=== PATIENT | female | born 1940 | race Caucasian/White ===

== ENCOUNTER → 2016-12-25 | Outpatient (CLI) | payer OTHER ==
[~2016-12-25] MED LIST: 'CLONIDINE0.1 MG PO; ADVIL200 M1 PO; AMLODIPINE BESYL5 MG PO; ASPRIN PO; BUMETANIDE1 MG PO; CALTRATE 600 +1 TAB PO; DIOVAN160 M2 PO; K-DUR20 MEQ PO; KLOR-CON 88 ME1 PO; LASIX20 MG PO; LISINOPRIL20 MG PO; LOSARTAN POTAS100 M1 PO; LOW DOSE ASPIRI81 MG PO; MICROZIDE12.5 M1 PO; NEXIUM40 MG PO; NORFLEX100 MG PO; NORVASC5 MG PO; PERCOCET 325 MG1 TA2 PO; SIMVASTATIN20 MG PO; TOPROL XL100 MG PO; VICODIN 5/500 505 MG PO; VITAMIN D5000 I3 PO; VITAMIN D50000 UNIT PO; XANAX0.25 MG PO; ZOCOR20 MG PO; ZOFRAN4 MG PO
== END | disposition home or self-care (01) ==
LOC: US 13:57
DX: R60.0 Localized edema (principal)

== ENCOUNTER → 2017-02-27 | Outpatient (CLI) | payer OTHER | END | disposition home or self-care (01) | LOC: US 10:52 | DX: R22.1 Localized swelling, mass and lump, neck (principal) ==

== ENCOUNTER → 2017-03-14 | Outpatient (CLI) | payer OTHER ==
[2017-03-14 15:11] LABS: CREATININE 0.87 mg/dL (0.55-1.02)
== END | disposition home or self-care (01) ==
LOC: LAB 14:41 → CT 15:00
PROVIDERS: Surgery
DX: R22.1 Localized swelling, mass and lump, neck (principal)

== ENCOUNTER → 2017-03-21 | Outpatient (CLI) | payer OTHER | END | disposition home or self-care (01) | LOC: CT 03-14 15:00 | DX: I67.82 Cerebral ischemia (principal); H44.521 Atrophy of globe, right eye; M26.69 Other specified disorders of temporomandibular joint ==

== ENCOUNTER → 2017-04-02 | Outpatient (CLI) | payer OTHER | END | disposition home or self-care (01) | LOC: US 12:24 | DX: E04.2 Nontoxic multinodular goiter (principal) ==

== ENCOUNTER → 2017-04-25 | Outpatient (CLI) | payer OTHER ==
[2017-04-25 11:28] LABS: ACT PARTIAL THROMBO TIME 24.3 SECONDS (20.8-31.5); INTERNATIONAL NORM RATIO 0.9 (2.0-3.5)
== END | disposition home or self-care (01) ==
LOC: SDC 11:00 → EDSTATUS 11:00
PROVIDERS: Internal Medicine
DX: E04.1 Nontoxic single thyroid nodule (principal); E07.9 Disorder of thyroid, unspecified; Z79.01 Long term (current) use of anticoagulants

== ENCOUNTER 2018-03-02 14:13 | Emergency (ER) | payer OTHER ==
[~2018-03-02] VITALS: Wt 72.6 kg
[2018-03-02 14:13] VITALS: BP 188/78
== END 2018-03-02 16:31 | disposition home or self-care (01) ==
LOC: ED 14:13
DX: M25.571 Pain in right ankle and joints of right foot (principal); M79.661 Pain in right lower leg; M79.671 Pain in right foot; E78.00 Pure hypercholesterolemia, unspecified; I10 Essential (primary) hypertension; K21.9 Gastro-esophageal reflux disease without esophagitis; Z85.3 Personal history of malignant neoplasm of breast; Z79.899 Other long term (current) drug therapy; Z79.82 Long term (current) use of aspirin; Z90.710 Acquired absence of both cervix and uterus; Z90.49 Acquired absence of other specified parts of digestive tract; W01.198A Fall on same level from slipping, tripping and stumbling with subsequent striking against other object, initial encounter; Y93.01 Activity, walking, marching and hiking; Y92.89 Other specified places as the place of occurrence of the external cause; Y99.8 Other external cause status

== ENCOUNTER → 2018-04-09 | Outpatient (CLI) | payer OTHER | END | disposition home or self-care (01) | LOC: US 11:00 | DX: M79.604 Pain in right leg (principal); R60.9 Edema, unspecified ==

== ENCOUNTER → 2019-03-31 | Outpatient (CLI) | payer OTHER ==
[2019-03-31 10:57] LABS: BASO # 0.1 10*3/uL (0.0-0.1); EOS # 0.3 10*3/uL (0.0-0.4); EOS % 4.3 % (1.0-4.0); HEMATOCRIT 34.9 % (37.0-47.0); HEMOGLOBIN 11.3 g/dl (12.0-16.0); LYMPH # 0.5 10*3/uL (1.3-4.4); LYMPH % 7.7 % (27.0-41.0); MEAN CELL VOLUME 102.3 fl (81.0-99.0); MEAN CORPUSCULAR HGB 33.1 pg (27.0-31.0); MEAN CORPUSCULAR HGB CONC 32.4 g/dl (33.0-37.0); MEAN PLATELET VOLUME 13.1 fl (9.6-12.3); MONO # 0.6 10*3/uL (0.1-1.0); MONO % 9.5 % (3.0-9.0); NEUT # 4.8 10*3/uL (2.3-7.9); NEUT % 77.2 % (47.0-73.0); PLATELET COUNT AUTOMATED 164 10*3/uL (130-400); RED BLOOD COUNT 3.41 10*6/uL (4.10-5.10); RED CELL DISTRI WIDTH 12.2 % (0-14.5); WHITE BLOOD COUNT 6.2 10*3/uL (4.8-10.8)
[2019-03-31 11:13] LABS: ALBUMIN 3.4 gm/dl (3.1-4.5); CREATININE 1.23 mg/dL (0.55-1.02); FREE T4 1.32 ng/dl (0.76-1.46); POTASSIUM 4.2 mmol/L (3.5-5.1)
[2019-03-31 11:17] LABS: THYROID STIM HORMONE (HS) 3.06 uIU/ml (0.358-4.75)
[2019-03-31 11:39] LABS: VITAMIN D, 25-HYDROXY 30.2 ng/mL (30-100)
== END | disposition home or self-care (01) ==
LOC: LAB 09:58 → CT 10:00
PROVIDERS: Internal Medicine
DX: Z13.1 Encounter for screening for diabetes mellitus (principal); Z13.220 Encounter for screening for lipoid disorders; I12.9 Hypertensive chronic kidney disease with stage 1 through stage 4 chronic kidney disease, or unspecified chronic kidney disease; N18.3 Chronic kidney disease, stage 3 (moderate); E55.9 Vitamin D deficiency, unspecified

== ENCOUNTER → 2019-05-10 | Day surgery (SDC) | payer OTHER ==
[2019-05-10 11:16] LABS: ACT PARTIAL THROMBO TIME 21.3 SECONDS (20.0-32.1); INTERNATIONAL NORM RATIO 0.9 (2.0-3.5)
== END | disposition home or self-care (01) ==
LOC: SDC 05-07 11:00 → RAD 05-07 11:00 → US 05-07 11:00 → SDC 01:26
PROVIDERS: Surgery
DX: D17.1 Benign lipomatous neoplasm of skin and subcutaneous tissue of trunk (principal); K21.9 Gastro-esophageal reflux disease without esophagitis; I10 Essential (primary) hypertension; F41.9 Anxiety disorder, unspecified; Z79.899 Other long term (current) drug therapy; Z79.82 Long term (current) use of aspirin; Z98.890 Other specified postprocedural states

== ENCOUNTER → 2020-01-31 | Outpatient (CLI) | payer OTHER ==
[2020-01-31 10:28] LABS: BASO # 0.1 10*3/uL (0.0-0.1); BASO % 1.2 % (0.0-1.0); EOS # 0.3 10*3/uL (0.0-0.4); EOS % 3.8 % (1.0-4.0); LYMPH # 0.8 10*3/uL (1.3-4.4); LYMPH % 12.1 % (27.0-41.0); MEAN CELL VOLUME 98.7 fl (81.0-99.0); MEAN CORPUSCULAR HGB CONC 32.4 g/dl (33.0-37.0); MEAN PLATELET VOLUME 12.6 fl (9.6-12.3); MONO # 0.6 10*3/uL (0.1-1.0); MONO % 8.2 % (3.0-9.0); NEUT # 5.1 10*3/uL (2.3-7.9); NEUT % 74.4 % (47.0-73.0); PLATELET COUNT AUTOMATED 177 10*3/uL (130-400); RED BLOOD COUNT 3.75 10*6/uL (4.10-5.10); RED CELL DISTRI WIDTH 12.2 % (0-14.5); WHITE BLOOD COUNT 6.9 10*3/uL (4.8-10.8)
[2020-01-31 11:05] LABS: ALBUMIN 3.5 gm/dl (3.1-4.5); CREATININE 1.26 mg/dL (0.55-1.02); FREE T4 1.19 ng/dl (0.76-1.46); POTASSIUM 4.4 mmol/L (3.5-5.1); TOTAL PROTEIN 7.1 gm/dL (6.4-8.2)
[2020-01-31 11:10] LABS: THYROID STIM HORMONE (HS) 1.96 uIU/ml (0.358-4.75)
[2020-01-31 11:28] LABS: VITAMIN D, 25-HYDROXY 22.9 ng/mL (30-100)
== END | disposition home or self-care (01) ==
LOC: LAB 10:00
PROVIDERS: ATTEND Internal Medicine
DX: I12.9 Hypertensive chronic kidney disease with stage 1 through stage 4 chronic kidney disease, or unspecified chronic kidney disease (principal); N18.30 Chronic kidney disease, stage 3 unspecified; E78.2 Mixed hyperlipidemia; E55.9 Vitamin D deficiency, unspecified; E03.9 Hypothyroidism, unspecified

== ENCOUNTER → 2020-04-18 | Outpatient (CLI) | payer OTHER ==
[~2020-04-18] MED LIST changes: +NORCO 5-325 TA1 EACH PO
== END | disposition home or self-care (01) ==
LOC: US 13:30
PROVIDERS: ATTEND Internal Medicine
DX: R60.0 Localized edema (principal)

== ENCOUNTER → 2020-05-03 | Outpatient (CLI) | payer OTHER | END | disposition home or self-care (01) | LOC: COVID19 13:22 | PROVIDERS: ATTEND Nurse Practitioner | DX: Z01.812 Encounter for preprocedural laboratory examination (principal); Z20.828 Contact with and (suspected) exposure to other viral communicable diseases ==

== ENCOUNTER → 2020-05-04 | Outpatient (CLI) | payer OTHER | END | disposition home or self-care (01) | LOC: CARD 05-03 10:30 | PROVIDERS: ATTEND Internal Medicine | DX: I34.0 Nonrheumatic mitral (valve) insufficiency (principal) ==

== ENCOUNTER → 2020-05-08 | Day surgery (SDC) | payer OTHER ==
[~2020-05-08] VITALS: Ht 154.9 cm; Wt 72.6 kg
[2020-05-08 08:25] VITALS: BP 174/65
[2020-05-08 09:50] VITALS: BP 158/69
[2020-05-08 10:04] VITALS: BP 170/59
[2020-05-08 10:20] VITALS: BP 142/68
[2020-05-09 10:12] LABS: ACID FAST SPEC PROCESSING Tissue Grinding (.)
[2020-06-23 13:06] LABS: ACID FAST CULTURE Negative (.)
== END ==
LOC: SDC 05-04 14:00
PROVIDERS: ATTEND Surgery
DX: I89.0 Lymphedema, not elsewhere classified (principal); K21.9 Gastro-esophageal reflux disease without esophagitis; F41.9 Anxiety disorder, unspecified; I10 Essential (primary) hypertension; Z85.3 Personal history of malignant neoplasm of breast; Z90.13 Acquired absence of bilateral breasts and nipples; Z90.710 Acquired absence of both cervix and uterus; M81.0 Age-related osteoporosis without current pathological fracture; E78.00 Pure hypercholesterolemia, unspecified; Z79.899 Other long term (current) drug therapy

== ENCOUNTER → 2020-06-02 | Outpatient (CLI) | payer OTHER ==
[2020-06-02 16:57] LABS: CREATININE 1.12 mg/dL (0.55-1.02); POTASSIUM 4.2 mmol/L (3.5-5.1)
== END | disposition home or self-care (01) ==
LOC: LAB 16:16
PROVIDERS: ATTEND Registered Nurse
DX: I10 Essential (primary) hypertension (principal)

== ENCOUNTER → 2020-08-21 | Outpatient (CLI) | payer OTHER ==
[2020-08-21 17:07] LABS: CREATININE 1.1 mg/dL (0.55-1.02); POTASSIUM 4.1 mmol/L (3.5-5.1)
== END | disposition home or self-care (01) ==
LOC: LAB 16:21
PROVIDERS: ATTEND Internal Medicine Cardiovascular Disease
DX: I10 Essential (primary) hypertension (principal); R60.0 Localized edema; R19.7 Diarrhea, unspecified

== ENCOUNTER → 2021-04-10 | Outpatient (CLI) | payer OTHER | END | disposition home or self-care (01) | LOC: CARD 14:42 | PROVIDERS: ATTEND Internal Medicine Cardiovascular Disease | DX: I10 Essential (primary) hypertension (principal); I34.0 Nonrheumatic mitral (valve) insufficiency; R60.0 Localized edema; I87.1 Compression of vein ==

== ENCOUNTER → 2021-06-12 | Outpatient (CLI) | payer OTHER | END | disposition home or self-care (01) | LOC: COVID19 15:20 | PROVIDERS: ATTEND Internal Medicine | DX: Z11.52 Encounter for screening for COVID-19 (principal) ==

== ENCOUNTER → 2022-09-25 | Outpatient (CLI) | payer OTHER ==
[2022-09-25 12:32] LABS: BASO # 0.1 10*3/uL (0.0-0.1); BASO % 1.2 % (0.0-1.0); EOS # 0.2 10*3/uL (0.0-0.4); EOS % 3.7 % (1.0-4.0); HEMATOCRIT 36.2 % (37.0-47.0); LYMPH # 0.7 10*3/uL (1.3-4.4); LYMPH % 13.1 % (27.0-41.0); MEAN CORPUSCULAR HGB 32.6 pg (27.0-31.0); MEAN CORPUSCULAR HGB CONC 32.6 g/dl (33.0-37.0); MEAN PLATELET VOLUME 11.8 fl (9.6-12.3); MONO # 0.5 10*3/uL (0.1-1.0); MONO % 9.5 % (3.0-9.0); NEUT # 4.1 10*3/uL (2.3-7.9); NEUT % 72.3 % (47.0-73.0); PLATELET COUNT AUTOMATED 181 10*3/uL (130-400); RED BLOOD COUNT 3.62 10*6/uL (4.10-5.10); RED CELL DISTRI WIDTH 12.4 % (0-14.5); WHITE BLOOD COUNT 5.7 10*3/uL (4.8-10.8)
[2022-09-25 13:16] LABS: FREE T4 1.22 ng/dl (0.89-1.76); POTASSIUM 4.3 mmol/L (3.4-5.1); THYROID STIM HORMONE (HS) 1.386 uIU/ml (0.550-4.780); TOTAL PROTEIN 6.9 gm/dL (6.0-8.0); VITAMIN D, 25-HYDROXY 37.5 ng/mL (30-100)
== END | disposition home or self-care (01) ==
LOC: LAB 12:05
PROVIDERS: ATTEND Internal Medicine
DX: Z13.220 Encounter for screening for lipoid disorders (principal); Z13.0 Encounter for screening for diseases of the blood and blood-forming organs and certain disorders involving the immune mechanism; Z13.1 Encounter for screening for diabetes mellitus; Z13.21 Encounter for screening for nutritional disorder; Z13.228 Encounter for screening for other metabolic disorders; Z13.29 Encounter for screening for other suspected endocrine disorder; Z13.6 Encounter for screening for cardiovascular disorders; Z13.89 Encounter for screening for other disorder; Z13.9 Encounter for screening, unspecified; I10 Essential (primary) hypertension; E55.9 Vitamin D deficiency, unspecified

== ENCOUNTER → 2023-09-09 | Outpatient (CLI) | payer OTHER | END | disposition home or self-care (01) | LOC: US 13:39 | PROVIDERS: ATTEND Internal Medicine | DX: N63.31 Unspecified lump in axillary tail of the right breast (principal); R91.1 Solitary pulmonary nodule; W19.XXXA Unspecified fall, initial encounter; X58.XXXA Exposure to other specified factors, initial encounter; Y93.89 Activity, other specified; Y92.89 Other specified places as the place of occurrence of the external cause; Y99.8 Other external cause status ==

== ENCOUNTER → 2023-12-11 | Outpatient (CLI) | payer OTHER | END | disposition home or self-care (01) | LOC: US 10:22 | PROVIDERS: ATTEND Internal Medicine | DX: R22.31 Localized swelling, mass and lump, right upper limb (principal) ==

== ENCOUNTER → 2023-12-23 | Outpatient (CLI) | payer OTHER ==
[2023-12-23 10:50] LABS: ACT PARTIAL THROMBO TIME 26.5 SECONDS (20.0-32.1)
[2023-12-24 15:07] LABS: ACID FAST SPEC PROCESSING Concentration (.)
== END | disposition home or self-care (01) ==
LOC: LAB 02:24 → EDSTATUS 11:00 → SDC 11:00
PROVIDERS: Radiology Diagnostic Radiology; ATTEND Internal Medicine
DX: R59.0 Localized enlarged lymph nodes (principal)

== ENCOUNTER → 2024-01-29 | Outpatient (CLI) | payer OTHER | END | disposition home or self-care (01) | LOC: US 13:27 | PROVIDERS: ATTEND Internal Medicine | DX: R79.89 Other specified abnormal findings of blood chemistry (principal) ==

== ENCOUNTER → 2024-10-27 | Outpatient (CLI) | payer OTHER ==
[2024-10-27 12:40] LABS: BASO # 0.1 10*3/uL (0.0-0.1); BASO % 1.1 % (0.0-1.0); EOS # 0.3 10*3/uL (0.0-0.4); EOS % 4.0 % (1.0-4.0); MEAN CELL VOLUME 100.0 fl (81.0-99.0); MEAN CORPUSCULAR HGB 32.7 pg (27.0-31.0); MEAN PLATELET VOLUME 12.6 fl (9.6-12.3); MONO # 0.6 10*3/uL (0.1-1.0); MONO % 8.9 % (3.0-9.0); NEUT # 4.7 10*3/uL (2.3-7.9); NEUT % 72.4 % (47.0-73.0); NUCLEATED RED BLOOD CELL 0.0 % (0.0-0.0); NUCLEATED RED BLOOD CELL 0.0 10*3/uL (0.0-0.0); PLATELET COUNT AUTOMATED 159 10*3/uL (130-400); RED CELL DISTRI WIDTH 12.3 % (0-14.5)
[2024-10-27 13:22] LABS: BUN 26.0 mg/dl (9-23); FREE T4 1.42 ng/dl (0.89-1.76); LDL CHOLESTEROL 62.0 mg/dL (9-159); SGPT/ALT 11.0 U/L (5-49)
[2024-10-27 13:23] LABS: VITAMIN D, 25-HYDROXY 36.6 ng/mL (30-100)
== END | disposition home or self-care (01) ==
LOC: LAB 11:51
PROVIDERS: ATTEND Internal Medicine
DX: I10 Essential (primary) hypertension (principal); E78.2 Mixed hyperlipidemia; R60.0 Localized edema

== ENCOUNTER → 2025-02-17 | Outpatient (CLI) | payer OTHER | END | disposition home or self-care (01) | LOC: CARD 12:37 | PROVIDERS: ATTEND Internal Medicine | DX: I08.0 Rheumatic disorders of both mitral and aortic valves (principal); J43.9 Emphysema, unspecified; I70.0 Atherosclerosis of aorta; I10 Essential (primary) hypertension; M47.814 Spondylosis without myelopathy or radiculopathy, thoracic region; R06.02 Shortness of breath ==

== ENCOUNTER 2025-02-20 09:21 | Emergency (ER) | payer OTHER ==
[~2025-02-20] VITALS: Ht 152.4 cm; Wt 72.6 kg
[2025-02-20 10:15] LABS: BASO # 0.0 10*3/uL (0.0-0.1); BASO % 0.5 % (0.0-1.0); EOS # 0.1 10*3/uL (0.0-0.4); EOS % 0.6 % (1.0-4.0); MEAN CELL VOLUME 100.3 fl (81.0-99.0); MEAN CORPUSCULAR HGB 32.5 pg (27.0-31.0); MEAN PLATELET VOLUME 11.5 fl (9.6-12.3); MONO # 0.6 10*3/uL (0.1-1.0); MONO % 7.2 % (3.0-9.0); NEUT # 7.4 10*3/uL (2.3-7.9); NEUT % 85.0 % (47.0-73.0); NUCLEATED RED BLOOD CELL 0.0 % (0.0-0.0); NUCLEATED RED BLOOD CELL 0.0 10*3/uL (0.0-0.0); PLATELET COUNT AUTOMATED 122 10*3/uL (130-400); RED CELL DISTRI WIDTH 12.6 % (0-14.5)
[2025-02-20 10:34] LABS: BUN 11 mg/dl (9-23)
[2025-02-20] MEDS ORDERED: IOHEXOL 350 MG/ML 100 ML VIAL IV ONE (10:55)
[2025-02-20] MEDS ORDERED: SODIUM CHLORIDE 0.9% 100 ML BAG IV ONE (10:55)
[2025-02-20 11:03] VITALS: BP 184/76
== END 2025-02-20 12:37 | disposition home or self-care (01) ==
LOC: ED 09:21
PROVIDERS: Student in an Organized Health Care Education/Training Program
DX: I10 Essential (primary) hypertension (principal); R51.9 Headache, unspecified; K21.9 Gastro-esophageal reflux disease without esophagitis; E78.00 Pure hypercholesterolemia, unspecified; Z90.49 Acquired absence of other specified parts of digestive tract; Z90.710 Acquired absence of both cervix and uterus